=== PATIENT | female | born 1945 | race Caucasian/White ===

== ENCOUNTER 2022-07-20 10:12 | Inpatient (IN) ==
[2022-07-20] MEDS ORDERED: Propofol 10 mg/ml 100 ML BTL 1,000 MG/100 ML BTL ONE (11:17)
[2022-07-20] MEDS ORDERED: Lactated Ringers 1000 ml BAG 1,000 ML IV ONE (11:18)
[2022-07-20] MEDS: Propofol 10 mg/ml 100 ML BTL 1,000 MG/100 ML BTL IV SCH ×2 (11:49→15:29)
[2022-07-20] MEDS ORDERED: Piperacillin/Tazobac ADVAN 3.375 GM in NS 0.9% 100 ml BAG 100 ML IV ONE (11:53)
[2022-07-20] MEDS ORDERED: Zosyn per Pharmacy NOTE FOLLOW UP SCH (12:00)
[2022-07-20] MEDS ORDERED: Dextrose 50% Syringe 50 ml 25 GM/50 ML SYRINGE IV PUSH PRN (12:03)
[2022-07-20] MEDS ORDERED: HYDROmorphone 1 MG/1 ML SYRINGE IV SLOW PU ONE (12:44)
[2022-07-20 12:45] LABS: Hematocrit 40.1 % (35-45); Hemoglobin 13.2 g/dL (11.5-14.3); Mean Corpuscular Hemoglobin 30.1 pg (27-33); Mean Corpuscular Volume 91.2 fL (80-97); Mean Platelet Volume 7.5 fL (7.5-11.2); Platelet Count 154 10^3/uL (150-450); Red Cell Distribution Width 15.5 % (12-17); White Blood Count 11.3 10^3/uL (3.8-11.8)
[2022-07-20 13:08] LABS: Albumin 2.9 g/dL (3.2-5.2); Albumin/Globulin Ratio 1.5 (1-3); Creatinine, Serum 2.07 mg/dL (0.51-0.95); Globulin 1.9 g/dL (2-4); HDL Cholesterol 14.3 mg/dL; Potassium 4.5 mmol/L (3.5-5.0); Total Bilirubin 1.7 mg/dL (0.2-1.0); Total Protein 4.8 g/dL (6.4-8.9); eGFR CKD-EPI 24.4 (>60)
[2022-07-20 13:20] LABS: Calcium 5.4 mg/dL (8.6-10.3)
[2022-07-20] MEDS ORDERED: Calcium Gluconate 2 GM in NS 0.9% 100 ml BAG 100 ML IV ONE (13:26)
[2022-07-20] MEDS ORDERED: CALCIUM GLUCONATE IVPB ONE ×2 (13:27→14:38)
[2022-07-20] MEDS ORDERED: NS 0.9% IVPB ONE ×2 (13:27→14:38)
[2022-07-20] MEDS: Chlorhexidine MOUTHWASH 0.12% 15 ML UDC TOPICAL SCH ×3 (13:34→19:44)
[2022-07-20] MEDS: Enoxaparin 40 MG/0.4 ML SYR SUBCUT SCH (13:34)
[2022-07-20 15:11] LABS: Magnesium 1.6 mg/dL (1.9-2.7)
[2022-07-20] MEDS ORDERED: Magnesium Sulfate IV 3 GM in NS 0.9% 100 ml BAG 100 ML IVPB ONE (16:54)
[2022-07-20 21:10] LABS: Phosphorus 3.8 mg/dL (2.5-5.0)
[2022-07-21] MEDS: Chlorhexidine MOUTHWASH 0.12% 15 ML UDC TOPICAL SCH ×6 (00:08→20:35)
[2022-07-21] MEDS: Propofol 10 mg/ml 100 ML BTL 1,000 MG/100 ML BTL IV SCH ×4 (00:42→20:24)
[2022-07-21 04:13] LABS: Hematocrit 35.9 % (35-45); Hemoglobin 12.2 g/dL (11.5-14.3); Mean Corpuscular Hemoglobin 30.4 pg (27-33); Mean Corpuscular Hgb Conc 34.1 g/dL (31-36); Mean Corpuscular Volume 89.1 fL (80-97); Mean Platelet Volume 7.1 fL (7.5-11.2); Platelet Count 156 10^3/uL (150-450); Red Blood Count 4.03 10^6/uL (3.63-4.92); Red Cell Distribution Width 14.9 % (12-17); White Blood Count 9.8 10^3/uL (3.8-11.8)
[2022-07-21 04:38] LABS: ABS Lymphocytes 0.5 10^3/uL (1.0-4.8); ABS Monocytes 0.5 10^3/uL (0.0-0.9); ABS Neutrophils 8.7 10^3/uL (1.5-7.6); ABS Nucleated RBC 0.01 10^3/ul; Eosinophil % 0.1 %; Lymphocyte % 5.6 %; Nucleated Red Blood Cells % 0.1 /100 WBC (0.0-0.4)
[2022-07-21 04:51] LABS: Albumin 2.5 g/dL (3.2-5.2); Albumin/Globulin Ratio 1.3 (1-3); Calcium 7.3 mg/dL (8.6-10.3); Creatinine, Serum 1.65 mg/dL (0.51-0.95); Globulin 1.9 g/dL (2-4); Magnesium 2.4 mg/dL (1.9-2.7); Phosphorus 2.8 mg/dL (2.5-5.0); Potassium 3.9 mmol/L (3.5-5.0); Total Protein 4.4 g/dL (6.4-8.9)
[2022-07-21] MEDS ORDERED: Metoprolol Tartrate 5 mg VIAL 5 ml VIAL (1 mg/ml) IV PRN (06:27)
[2022-07-21] MEDS ORDERED: Metoprolol Tartrate 5 mg VIAL 5 ml VIAL (1 mg/ml) ONE (06:29)
[2022-07-21] MEDS: Enoxaparin 40 MG/0.4 ML SYR SUBCUT SCH (09:01)
[2022-07-21] MEDS: Lactated Ringers 1000 ml BAG 1,000 ML IV SCH ×2 (09:02→19:00)
[2022-07-21] MEDS: Pantoprazole VIAL 40 MG VIAL IV SCH (09:02)
[2022-07-21] MEDS ORDERED: HYDROmorphone 1 MG/1 ML SYRINGE IV SLOW PU ONE (14:20)
[2022-07-21] MEDS: Acetaminophen IV 1 GM/100ML 1,000 MG/100 ML BAG IV PRN (18:34)
[2022-07-21 18:46] LABS: ALT 34 U/L (7-52); Albumin 2.3 g/dL (3.2-5.2); Albumin/Globulin Ratio 1.2 (1-3); Alkaline Phosphatase 119 U/L (35-149); Blood Urea Nitrogen 47 mg/dL (6-24); CO2 Carbon Dioxide 19 mmol/L (22-32); Calcium 7.2 mg/dL (8.6-10.3); Chloride 114 mmol/L (101-111); Creatinine, Serum 1.51 mg/dL (0.51-0.95); Globulin 1.9 g/dL (2-4); Glucose 195 mg/dL (70-100); Sodium 141 mmol/L (135-145); Total Protein 4.2 g/dL (6.4-8.9); eGFR CKD-EPI 35.6 (>60)
[2022-07-21] MEDS: Norepinephrine 16MCG/ML BAGD5W 4,000 MCG/250 ML BAG IV SCH (18:56)
[2022-07-21 18:57] LABS: Creatine Kinase 368 U/L (10-223)
[2022-07-21] MEDS: Meropenem 2 GM in NS 0.9% 100 ml BAG 100 ML IVPB SCH (19:32)
[2022-07-21 19:34] LABS: Burr Cells 1+; Tear Drop Cells 1+
[2022-07-21 19:35] LABS: ABS Lymphocytes 0.3 10^3/uL (1.0-4.8); ABS Neutrophils 2.7 10^3/uL (1.5-7.6); ABS Nucleated RBC 0.05 10^3/ul; Eosinophil % 0.8 %; Hematocrit 34.5 % (35-45); Lymphocyte % 9.4 %; Mean Corpuscular Hemoglobin 31.8 pg (27-33); Mean Corpuscular Hgb Conc 34.8 g/dL (31-36); Mean Corpuscular Volume 91.3 fL (80-97); Mean Platelet Volume 7.8 fL (7.5-11.2); Nucleated Red Blood Cells % 1.5 /100 WBC (0.0-0.4); Platelet Count 147 10^3/uL (150-450); Red Blood Count 3.77 10^6/uL (3.63-4.92); Red Cell Distribution Width 15.6 % (12-17)
[2022-07-21 19:40] LABS: Anion Gap 8 mmol/L (2-16)
[2022-07-21] MEDS ORDERED: Alteplase (CATHFLO) 2 MG VIAL IV ONE (20:01)
[2022-07-22] MEDS: Chlorhexidine MOUTHWASH 0.12% 15 ML UDC TOPICAL SCH ×7 (00:25→23:54)
[2022-07-22 01:27] LABS: Potassium, Whole Blood 3.2 mmol/L (3.4-4.5)
[2022-07-22 05:03] LABS: Hematocrit 33.9 % (35-45); Hemoglobin 11.8 g/dL (11.5-14.3); Mean Corpuscular Hemoglobin 31.4 pg (27-33); Mean Corpuscular Hgb Conc 34.8 g/dL (31-36); Mean Corpuscular Volume 90.3 fL (80-97); Mean Platelet Volume 7.4 fL (7.5-11.2); Platelet Count 125 10^3/uL (150-450); Red Blood Count 3.75 10^6/uL (3.63-4.92); White Blood Count 7.9 10^3/uL (3.8-11.8)
[2022-07-22] MEDS: Propofol 10 mg/ml 100 ML BTL 1,000 MG/100 ML BTL IV SCH ×5 (05:31→21:47)
[2022-07-22 05:38] LABS: ABS Lymphocytes 0.7 10^3/uL (1.0-4.8); ABS Monocytes 0.2 10^3/uL (0.0-0.9); Eosinophil % 0.4 %; Lymphocyte % 9.4 %; Nucleated Red Blood Cells % 0.1 /100 WBC (0.0-0.4)
[2022-07-22 05:40] LABS: Albumin 2.2 g/dL (3.2-5.2); Albumin/Globulin Ratio 1.2 (1-3); Calcium 7.1 mg/dL (8.6-10.3); Creatinine, Serum 1.54 mg/dL (0.51-0.95); Globulin 1.9 g/dL (2-4); Magnesium 2.3 mg/dL (1.9-2.7); Potassium 3.5 mmol/L (3.5-5.0); Total Protein 4.1 g/dL (6.4-8.9); eGFR CKD-EPI 34.8 (>60)
[2022-07-22] MEDS: Pantoprazole VIAL 40 MG VIAL IV SCH (07:24)
[2022-07-22] MEDS: Meropenem 2 GM in NS 0.9% 100 ml BAG 100 ML IVPB SCH ×2 (07:25→20:59)
[2022-07-22] MEDS: Enoxaparin 40 MG/0.4 ML SYR SUBCUT SCH (07:25)
[2022-07-22] MEDS ORDERED: Potassium Phosphate IV 10 MMOL in NS 0.9% 250 ml 250 ML IVPB ONE (07:45)
[2022-07-22] MEDS: Lactated Ringers 1000 ml BAG 1,000 ML IV SCH ×2 (08:48→18:21)
[2022-07-22] MEDS ORDERED: Thiamine 100 MG/ML 2 ml VIAL 500 MG in NS 0.9% 250 ml 250 ML IV ONE (16:07)
[2022-07-22] MEDS: Acetaminophen IV 1 GM/100ML 1,000 MG/100 ML BAG IV PRN (16:23)
[2022-07-23] MEDS: HYDROmorphone 0.5 MG/0.5 ML SYRINGE IV SLOW PU PRN ×3 (03:03→15:11)
[2022-07-23] MEDS: Propofol 10 mg/ml 100 ML BTL 1,000 MG/100 ML BTL IV SCH ×5 (03:25→21:24)
[2022-07-23] MEDS: Lactated Ringers 1000 ml BAG 1,000 ML IV SCH (03:55)
[2022-07-23] MEDS: Chlorhexidine MOUTHWASH 0.12% 15 ML UDC TOPICAL SCH ×5 (03:56→20:03)
[2022-07-23 04:34] LABS: Hematocrit 34.8 % (35-45); Hemoglobin 11.8 g/dL (11.5-14.3); Mean Corpuscular Hemoglobin 30.7 pg (27-33); Mean Corpuscular Hgb Conc 34.1 g/dL (31-36); Mean Corpuscular Volume 90.1 fL (80-97); Mean Platelet Volume 7.6 fL (7.5-11.2); Platelet Count 117 10^3/uL (150-450); Red Blood Count 3.86 10^6/uL (3.63-4.92); Red Cell Distribution Width 15.3 % (12-17); White Blood Count 10.1 10^3/uL (3.8-11.8)
[2022-07-23 04:50] LABS: Albumin 2.2 g/dL (3.2-5.2); Albumin/Globulin Ratio 1.2 (1-3); Calcium 7.2 mg/dL (8.6-10.3); Creatinine, Serum 1.18 mg/dL (0.51-0.95); Globulin 1.9 g/dL (2-4); Magnesium 2.1 mg/dL (1.9-2.7); Phosphorus 2.6 mg/dL (2.5-5.0); Potassium 3.5 mmol/L (3.5-5.0); Total Bilirubin 0.9 mg/dL (0.2-1.0); Total Protein 4.1 g/dL (6.4-8.9); eGFR CKD-EPI 47.9 (>60)
[2022-07-23 05:14] LABS: INR 1.37 (0.88-1.18)
[2022-07-23 05:24] LABS: ABS Eosinophils 0.1 10^3/uL (0.0-0.5); ABS Lymphocytes 0.7 10^3/uL (1.0-4.8); ABS Monocytes 0.4 10^3/uL (0.0-0.9); ABS Neutrophils 8.8 10^3/uL (1.5-7.6); ABS Nucleated RBC 0.02 10^3/ul; Eosinophil % 1.4 %; Nucleated Red Blood Cells % 0.2 /100 WBC (0.0-0.4)
[2022-07-23 05:25] LABS: RBC Morphology Normal (Normal)
[2022-07-23] MEDS: Enoxaparin 40 MG/0.4 ML SYR SUBCUT SCH (08:33)
[2022-07-23] MEDS: Meropenem 2 GM in NS 0.9% 100 ml BAG 100 ML IVPB SCH ×2 (08:33→21:23)
[2022-07-23] MEDS: Pantoprazole VIAL 40 MG VIAL IV SCH (08:33)
[2022-07-23] MEDS ORDERED: Iodixanol (CONTRAST) 320 MG/ML 100 ML SDV IV ONE (13:38)
[2022-07-24] MEDS: Chlorhexidine MOUTHWASH 0.12% 15 ML UDC TOPICAL SCH ×7 (00:35→23:54)
[2022-07-24] MEDS: Propofol 10 mg/ml 100 ML BTL 1,000 MG/100 ML BTL IV SCH (03:05)
[2022-07-24] MEDS: Acetaminophen IV 1 GM/100ML 1,000 MG/100 ML BAG IV PRN (04:36)
[2022-07-24 05:44] LABS: Hemoglobin 10.3 g/dL (11.5-14.3); Mean Corpuscular Hemoglobin 30.2 pg (27-33)
[2022-07-24 05:45] LABS: Mean Corpuscular Hgb Conc 33.5 g/dL (31-36)
[2022-07-24 05:47] LABS: Hematocrit 30.8 % (35-45); Mean Corpuscular Volume 90.6 fL (80-97); Mean Platelet Volume 9.6 fL (7.5-11.2); Platelet Count 134 10^3/uL (150-450); Red Cell Distribution Width 15.4 % (12-17); White Blood Count 11.1 10^3/uL (3.8-11.8)
[2022-07-24 05:55] LABS: ABS Basophils 0.1 10^3/uL (0.0-0.1); ABS Eosinophils 0.2 10^3/uL (0.0-0.5); ABS Lymphocytes 0.7 10^3/uL (1.0-4.8); ABS Monocytes 0.4 10^3/uL (0.0-0.9); ABS Neutrophils 9.7 10^3/uL (1.5-7.6); ABS Nucleated RBC 0.01 10^3/ul; Anisocytosis 1+; Lymphocyte % 6.4 %; Nucleated Red Blood Cells % 0.1 /100 WBC (0.0-0.4); Toxic Granulation 1+
[2022-07-24 06:00] LABS: Albumin 2.1 g/dL (3.2-5.2); Albumin/Globulin Ratio 1.1 (1-3); Calcium 7.3 mg/dL (8.6-10.3); Creatinine, Serum 1.02 mg/dL (0.51-0.95); Potassium 3.3 mmol/L (3.5-5.0); Total Bilirubin 0.7 mg/dL (0.2-1.0); Total Protein 4.1 g/dL (6.4-8.9)
[2022-07-24] MEDS: KCL 20 MEQ/100 ML IVPREMIX 20 MEQ/100 ML BAG IV SCH ×3 (06:13→11:52)
[2022-07-24] MEDS: Enoxaparin 40 MG/0.4 ML SYR SUBCUT SCH (07:23)
[2022-07-24] MEDS: Pantoprazole VIAL 40 MG VIAL IV SCH (07:23)
[2022-07-24] MEDS: HYDROmorphone 1 MG/1 ML SYRINGE IV SLOW PU PRN ×4 (07:31→21:54)
[2022-07-24] MEDS: Meropenem 2 GM in NS 0.9% 100 ml BAG 100 ML IVPB SCH ×2 (09:24→21:28)
[2022-07-24 11:29] LABS: Urine Appearance Clear; Urine Bilirubin Negative (Negative); Urine Blood 1+ (Negative); Urine Color Yellow; Urine Glucose 3+(>=500 mg/dL) (Negative); Urine Ketones Trace (Negative); Urine Nitrite Negative (Negative); Urine Protein 1+(30 mg/dL) (Negative); Urine Specific Gravity 1.024 (1.002-1.030); Urine Urobilinogen Negative (Negative)
[2022-07-24 11:39] LABS: Urine Bacteria Absent (Absent); Urine Red Blood Cell 1+(3-5/hpf) (Absent); Urine White Blood Cell Trace(0-5/hpf) (Absent)
[2022-07-24 15:52] LABS: TSH Ultra Thyroid Stim Horm 1.43 mcIU/mL (0.34-5.60)
[2022-07-24 16:03] LABS: Vitamin B12 > 1450 pg/mL (180-914)
[2022-07-24] MEDS ORDERED: Dextran 70/Hypromellose Tears Eye Drops 15 ml BTL (for Artificials Tears) BOTH EYES PRN (21:52)
[2022-07-24] MEDS ORDERED: Propofol 10 mg/ml 100 ML BTL 1,000 MG/100 ML BTL IV SCH (22:00)
[2022-07-24] MEDS: Alteplase (CATHFLO) 2 MG VIAL IV ONE (23:22)
[2022-07-25] MEDS: HYDROmorphone 1 MG/1 ML SYRINGE IV SLOW PU PRN ×3 (02:39→14:06)
[2022-07-25] MEDS: Chlorhexidine MOUTHWASH 0.12% 15 ML UDC TOPICAL SCH ×5 (03:51→19:56)
[2022-07-25 05:18] LABS: Hematocrit 37.7 % (35-45); Hemoglobin 12.7 g/dL (11.5-14.3); Mean Corpuscular Hemoglobin 30.2 pg (27-33); Mean Corpuscular Hgb Conc 33.7 g/dL (31-36); Mean Corpuscular Volume 89.7 fL (80-97); Mean Platelet Volume 8.1 fL (7.5-11.2); Platelet Count 155 10^3/uL (150-450); Red Cell Distribution Width 14.8 % (12-17); White Blood Count 18.1 10^3/uL (3.8-11.8)
[2022-07-25 05:25] LABS: CO2 Carbon Dioxide 24 mmol/L (22-32); Calcium 7.6 mg/dL (8.6-10.3); Chloride 116 mmol/L (101-111); Sodium 147 mmol/L (135-145)
[2022-07-25 05:31] LABS: ALT 23 U/L (7-52); Albumin/Globulin Ratio 0.7 (1-3); Alkaline Phosphatase 160 U/L (35-149); Blood Urea Nitrogen 38 mg/dL (6-24); Creatinine, Serum 0.94 mg/dL (0.51-0.95); Globulin 2.7 g/dL (2-4); Glucose 253 mg/dL (70-100); Total Protein 4.7 g/dL (6.4-8.9); eGFR CKD-EPI 62.9 (>60)
[2022-07-25 05:34] LABS: Anion Gap 7 mmol/L (2-16)
[2022-07-25 06:09] LABS: ABS Eosinophils 0.1 10^3/uL (0.0-0.5); ABS Lymphocytes 0.9 10^3/uL (1.0-4.8); ABS Monocytes 0.8 10^3/uL (0.0-0.9); ABS Neutrophils 16.3 10^3/uL (1.5-7.6); ABS Nucleated RBC 0.01 10^3/ul; Eosinophil % 0.5 %; Lymphocyte % 4.9 %
[2022-07-25 08:04] LABS: Magnesium 2.2 mg/dL (1.9-2.7)
[2022-07-25 08:10] LABS: Phosphorus 3.2 mg/dL (2.5-5.0)
[2022-07-25] MEDS: Meropenem 2 GM in NS 0.9% 100 ml BAG 100 ML IVPB SCH (08:10)
[2022-07-25] MEDS: Pantoprazole VIAL 40 MG VIAL IV SCH (08:20)
[2022-07-25] MEDS: Enoxaparin 40 MG/0.4 ML SYR SUBCUT SCH (08:22)
[2022-07-25] MEDS ORDERED: Dextrose 50% Syringe 50 ml 25 GM/50 ML SYRINGE IV PUSH PRN (09:07)
[2022-07-25 09:38] LABS: RBC Morphology Normal (Normal)
[2022-07-25] MEDS ORDERED: Labetalol IV 5 MG/ML 20 ml VIAL IV PUSH PRN (13:02)
[2022-07-25] MEDS: Acetaminophen IV 1 GM/100ML 1,000 MG/100 ML BAG IV PRN ×2 (14:06→23:30)
[2022-07-25] MEDS: Propofol 10 mg/ml 100 ML BTL 1,000 MG/100 ML BTL IV SCH (15:21)
[2022-07-26] MEDS: Chlorhexidine MOUTHWASH 0.12% 15 ML UDC TOPICAL SCH ×6 (00:33→22:30)
[2022-07-26 06:23] LABS: Hemoglobin 12.9 g/dL (11.5-14.3); Mean Corpuscular Hemoglobin 30.4 pg (27-33); Mean Corpuscular Hgb Conc 33.8 g/dL (31-36); Mean Corpuscular Volume 89.8 fL (80-97); Mean Platelet Volume 8.5 fL (7.5-11.2); Platelet Count 173 10^3/uL (150-450); Red Blood Count 4.23 10^6/uL (3.63-4.92); Red Cell Distribution Width 14.3 % (12-17); White Blood Count 19.3 10^3/uL (3.8-11.8)
[2022-07-26 06:53] LABS: Albumin/Globulin Ratio 0.8 (1-3); Calcium 7.8 mg/dL (8.6-10.3); Creatinine, Serum 0.83 mg/dL (0.51-0.95); Globulin 2.6 g/dL (2-4); Magnesium 2.1 mg/dL (1.9-2.7); Potassium 3.7 mmol/L (3.5-5.0); Total Bilirubin 0.6 mg/dL (0.2-1.0); Total Protein 4.6 g/dL (6.4-8.9)
[2022-07-26 08:18] LABS: ABS Basophils 0.1 10^3/uL (0.0-0.1); ABS Eosinophils 0.2 10^3/uL (0.0-0.5); ABS Monocytes 0.5 10^3/uL (0.0-0.9); ABS Neutrophils 17.5 10^3/uL (1.5-7.6); ABS Nucleated RBC 0.01 10^3/ul
[2022-07-26] MEDS: Enoxaparin 40 MG/0.4 ML SYR SUBCUT SCH (09:50)
[2022-07-26] MEDS: Pantoprazole VIAL 40 MG VIAL IV SCH (09:50)
[2022-07-26] MEDS: HYDROmorphone 1 MG/1 ML SYRINGE IV SLOW PU PRN (09:51)
[2022-07-26] MEDS: cefTRIAXone 2 gm/50 mL D5W 2 GM/50 ML BAG IV SCH (10:58)
[2022-07-26] MEDS: metroNIDAZOLE IV 500 MG/100ML 500 MG/100 ML BAG IVPB SCH ×2 (10:58→16:45)
[2022-07-26] MEDS ORDERED: Vancomycin 1,500 MG in NS 0.9% 250 ml 250 ML IVPB ONE (11:00)
[2022-07-26 11:20] LABS: Calcium 7.8 mg/dL (8.6-10.3); Creatinine, Serum 0.81 mg/dL (0.51-0.95); Potassium 3.6 mmol/L (3.5-5.0); eGFR CKD-EPI 75.2 (>60)
[2022-07-26 11:30] LABS: C Reactive Protein 260.29 mg/L (<8.01)
[2022-07-26 13:22] LABS: Urine Osmo 633 mOsm/kg (150-1150)
[2022-07-26 15:48] LABS: DRVVT Screen Ratio 1.35 ratio (<1.20); LAC APTT 28 sec (25 - 37); LAC INR 1.3 (0.9-1.1); LAC PT Mix 1:1 12.3 sec (9.4 - 12.5); Prothrombin Time(LAC) 14.5 sec (9.4 - 12.5)
[2022-07-26] MEDS: Acetaminophen IV 1 GM/100ML 1,000 MG/100 ML BAG IV PRN (16:45)
[2022-07-26 18:19] LABS: Calcium 7.2 mg/dL (8.6-10.3); Creatinine, Serum 0.85 mg/dL (0.51-0.95); Potassium 3.4 mmol/L (3.5-5.0)
[2022-07-26] MEDS ORDERED: Insulin GLARGINE 100 un/ml 10 ml VIAL SUBCUT SCH (21:00)
[2022-07-26] MEDS: Potassium Chloride LIQUID 20 MEQ/15 ML LIQUID PO SCH (23:14)
[2022-07-27] MEDS: metroNIDAZOLE IV 500 MG/100ML 500 MG/100 ML BAG IVPB SCH ×3 (01:33→17:35)
[2022-07-27] MEDS: Chlorhexidine MOUTHWASH 0.12% 15 ML UDC TOPICAL SCH ×6 (01:49→21:12)
[2022-07-27 02:11] LABS: CO2 Carbon Dioxide 24 mmol/L (22-32); Calcium 7.6 mg/dL (8.6-10.3); Chloride 114 mmol/L (101-111); Sodium 146 mmol/L (135-145)
[2022-07-27 02:16] LABS: Anion Gap 8 mmol/L (2-16)
[2022-07-27 02:17] LABS: Blood Urea Nitrogen 37 mg/dL (6-24); Creatinine, Serum 0.85 mg/dL (0.51-0.95); Glucose 243 mg/dL (70-100)
[2022-07-27] MEDS: Potassium Chloride LIQUID 20 MEQ/15 ML LIQUID PO SCH (03:56)
[2022-07-27 05:19] LABS: Calcium 7.5 mg/dL (8.6-10.3); Creatinine, Serum 0.81 mg/dL (0.51-0.95); Potassium 4.1 mmol/L (3.5-5.0); eGFR CKD-EPI 75.2 (>60)
[2022-07-27] MEDS: Vancomycin 1000 MG in NS 0.9% 250 ML IVPB SCH ×2 (05:30→17:35)
[2022-07-27] MEDS: Acetaminophen IV 1 GM/100ML 1,000 MG/100 ML BAG IV PRN (06:30)
[2022-07-27] MEDS: Propofol 10 mg/ml 100 ML BTL 1,000 MG/100 ML BTL IV SCH ×2 (08:31→08:32)
[2022-07-27] MEDS: Norepinephrine 16MCG/ML BAGD5W 4,000 MCG/250 ML BAG IV SCH (08:32)
[2022-07-27 08:54] LABS: ABS Basophils 0.1 10^3/uL (0.0-0.1); ABS Eosinophils 0.1 10^3/uL (0.0-0.5); ABS Lymphocytes 1.5 10^3/uL (1.0-4.8); ABS Monocytes 0.6 10^3/uL (0.0-0.9); ABS Neutrophils 18.4 10^3/uL (1.5-7.6); ABS Nucleated RBC 0.02 10^3/ul; Eosinophil % 0.6 %; Hematocrit 36.3 % (35-45); Hemoglobin 11.9 g/dL (11.5-14.3); Lymphocyte % 7.3 %; Mean Corpuscular Hemoglobin 29.3 pg (27-33); Mean Corpuscular Hgb Conc 32.9 g/dL (31-36); Mean Corpuscular Volume 89.1 fL (80-97); Mean Platelet Volume 8.8 fL (7.5-11.2); Nucleated Red Blood Cells % 0.1 /100 WBC (0.0-0.4); Platelet Count 225 10^3/uL (150-450); Red Blood Count 4.07 10^6/uL (3.63-4.92); Red Cell Distribution Width 14.4 % (12-17); White Blood Count 20.7 10^3/uL (3.8-11.8)
[2022-07-27 09:04] LABS: INR 1.42 (0.88-1.18)
[2022-07-27] MEDS ORDERED: Phytonadione Oral Solution 5 MG/25 ML UDC PO ONE (09:15)
[2022-07-27] MEDS: Pantoprazole VIAL 40 MG VIAL IV SCH (10:13)
[2022-07-27] MEDS: cefTRIAXone 2 gm/50 mL D5W 2 GM/50 ML BAG IV SCH (10:14)
[2022-07-27] MEDS ORDERED: Lactulose 30 ml UDC ONE (10:16)
[2022-07-27] MEDS ORDERED: Vancomycin per Pharmacy 1 EA NOTE FOLLOW UP PRN (11:41)
[2022-07-27] MEDS: Lactulose 30 ml UDC PO SCH ×3 (11:53→21:14)
[2022-07-27 12:03] LABS: Coag Factor VII Assay,P 55 % (65 - 180)
[2022-07-27 16:32] LABS: Body Fluid Source Cerebral Spinal
[2022-07-27 16:34] LABS: Body Fluid Appearance Clear; Body Fluid Color Colorless
[2022-07-27 16:35] LABS: CSF Tube # 4
[2022-07-27 16:46] LABS: CSF Glucose 147 mg/dL (40-70)
[2022-07-27 16:53] LABS: Body Fluid WBC 0 /mcL
[2022-07-27 16:54] LABS: Fibrinogen, Clauss, P >800 mg/dL (200 - 500)
[2022-07-27] MEDS ORDERED: Furosemide 20 mg/2 ml IV VIAL IV SLOW PU ONE (17:43)
[2022-07-27 20:36] LABS: Albumin 1.9 g/dL (3.2-5.2); Albumin/Globulin Ratio 0.6 (1-3); Calcium 7.5 mg/dL (8.6-10.3); Creatinine, Serum 0.79 mg/dL (0.51-0.95); Total Bilirubin 0.5 mg/dL (0.2-1.0); Total Protein 4.9 g/dL (6.4-8.9); eGFR CKD-EPI 77.5 (>60)
[2022-07-27 20:50] LABS: Potassium 3.9 mmol/L (3.5-5.0)
[2022-07-27] MEDS ORDERED: Insulin GLARGINE 100 un/ml 10 ml VIAL SUBCUT SCH (21:00)
[2022-07-27] MEDS ORDERED: Magnesium Sulfate 2 gm BAG 2 GM/50 ML BAG IVPB ONE (21:02)
[2022-07-27] MEDS ORDERED: Potassium Chloride LIQUID 20 MEQ/15 ML LIQUID PO ONE (21:02)
[2022-07-28] MEDS: metroNIDAZOLE IV 500 MG/100ML 500 MG/100 ML BAG IVPB SCH ×3 (00:45→16:43)
[2022-07-28] MEDS: Chlorhexidine MOUTHWASH 0.12% 15 ML UDC TOPICAL SCH ×3 (00:47→07:48)
[2022-07-28 04:38] LABS: ABS Basophils 0.2 10^3/uL (0.0-0.1); ABS Eosinophils 0.1 10^3/uL (0.0-0.5); ABS Lymphocytes 1.1 10^3/uL (1.0-4.8); ABS Monocytes 0.5 10^3/uL (0.0-0.9); ABS Neutrophils 15.1 10^3/uL (1.5-7.6); ABS Nucleated RBC 0.02 10^3/ul; Eosinophil % 0.5 %; Hematocrit 32.1 % (35-45); Hemoglobin 10.8 g/dL (11.5-14.3); Lymphocyte % 6.5 %; Mean Corpuscular Hgb Conc 33.6 g/dL (31-36); Mean Corpuscular Volume 89.2 fL (80-97); Mean Platelet Volume 8.8 fL (7.5-11.2); Nucleated Red Blood Cells % 0.1 /100 WBC (0.0-0.4); Platelet Count 221 10^3/uL (150-450); Red Cell Distribution Width 14.5 % (12-17); White Blood Count 17.1 10^3/uL (3.8-11.8)
[2022-07-28 05:19] LABS: Albumin 1.8 g/dL (3.2-5.2); Albumin/Globulin Ratio 0.7 (1-3); Calcium 7.4 mg/dL (8.6-10.3); Creatinine, Serum 0.79 mg/dL (0.51-0.95); Globulin 2.7 g/dL (2-4); Magnesium 2.1 mg/dL (1.9-2.7); Phosphorus 3.5 mg/dL (2.5-5.0); Potassium 3.7 mmol/L (3.5-5.0); Total Bilirubin 0.4 mg/dL (0.2-1.0); Total Protein 4.5 g/dL (6.4-8.9); Vancomycin Trough 11.6 mcg/mL; eGFR CKD-EPI 77.5 (>60)
[2022-07-28] MEDS ORDERED: Vancomycin Trough Check NOTE FOLLOW UP ONE (05:30)
[2022-07-28] MEDS ORDERED: Potassium Chloride LIQUID 20 MEQ/15 ML LIQUID PO ONE (05:41)
[2022-07-28] MEDS: Vancomycin 1000 MG in NS 0.9% 250 ML IVPB SCH (05:42)
[2022-07-28] MEDS: cefTRIAXone 2 gm/50 mL D5W 2 GM/50 ML BAG IV SCH (07:49)
[2022-07-28] MEDS: Pantoprazole VIAL 40 MG VIAL IV SCH (07:52)
[2022-07-28] MEDS: Lactulose 30 ml UDC PO SCH (07:59)
[2022-07-28] MEDS: Enoxaparin 40 MG/0.4 ML SYR SUBCUT SCH (12:19)
[2022-07-28 13:31] LABS: Albumin 1.9 g/dL (3.2-5.2); Albumin/Globulin Ratio 0.6 (1-3); Calcium 7.3 mg/dL (8.6-10.3); Creatinine, Serum 0.8 mg/dL (0.51-0.95); Potassium 4.2 mmol/L (3.5-5.0); Total Bilirubin 0.5 mg/dL (0.2-1.0); Total Protein 4.9 g/dL (6.4-8.9); eGFR CKD-EPI 76.3 (>60)
[2022-07-28] MEDS: Acetaminophen IV 1 GM/100ML 1,000 MG/100 ML BAG IV PRN (14:01)
[2022-07-28] MEDS: Insulin GLARGINE 100 un/ml 10 ml VIAL SUBCUT SCH (20:45)
[2022-07-28] MEDS ORDERED: Insulin GLARGINE 100 un/ml 10 ml VIAL SUBCUT SCH (21:00)
[2022-07-29] MEDS: metroNIDAZOLE IV 500 MG/100ML 500 MG/100 ML BAG IVPB SCH ×3 (00:22→16:03)
[2022-07-29 05:16] LABS: ABS Basophils 0.1 10^3/uL (0.0-0.1); ABS Eosinophils 0.1 10^3/uL (0.0-0.5); ABS Lymphocytes 1.2 10^3/uL (1.0-4.8); ABS Monocytes 0.7 10^3/uL (0.0-0.9); ABS Neutrophils 15.2 10^3/uL (1.5-7.6); ABS Nucleated RBC 0.02 10^3/ul; Eosinophil % 0.4 %; Hematocrit 32.7 % (35-45); Hemoglobin 11.1 g/dL (11.5-14.3); Lymphocyte % 6.9 %; Mean Corpuscular Hemoglobin 30.4 pg (27-33); Mean Corpuscular Hgb Conc 33.9 g/dL (31-36); Mean Corpuscular Volume 89.6 fL (80-97); Mean Platelet Volume 8.8 fL (7.5-11.2); Nucleated Red Blood Cells % 0.1 /100 WBC (0.0-0.4); Platelet Count 273 10^3/uL (150-450); Red Blood Count 3.65 10^6/uL (3.63-4.92); Red Cell Distribution Width 14.4 % (12-17); White Blood Count 17.3 10^3/uL (3.8-11.8)
[2022-07-29 05:58] LABS: Albumin 1.8 g/dL (3.2-5.2); Albumin/Globulin Ratio 0.6 (1-3); Calcium 7.3 mg/dL (8.6-10.3); Creatinine, Serum 0.76 mg/dL (0.51-0.95); Globulin 2.8 g/dL (2-4); Magnesium 1.9 mg/dL (1.9-2.7); Total Bilirubin 0.5 mg/dL (0.2-1.0); Total Protein 4.6 g/dL (6.4-8.9); eGFR CKD-EPI 81.2 (>60)
[2022-07-29] MEDS ORDERED: Magnesium Sulfate 2 gm BAG 2 GM/50 ML BAG IVPB ONE (06:13)
[2022-07-29] MEDS ORDERED: Lactated Ringers 1000 ml BAG 1,000 ML IV ONE (08:16)
[2022-07-29] MEDS: Pantoprazole VIAL 40 MG VIAL IV SCH (09:04)
[2022-07-29] MEDS: cefTRIAXone 2 gm/50 mL D5W 2 GM/50 ML BAG IV SCH (09:19)
[2022-07-29] MEDS: Enoxaparin 40 MG/0.4 ML SYR SUBCUT SCH (09:23)
[2022-07-29 16:15] LABS: HSV 1 PCR, CSF Negative (Negative); HSV 2 PCR, CSF Negative (Negative)
[2022-07-29] MEDS: Insulin GLARGINE 100 un/ml 10 ml VIAL SUBCUT SCH (21:25)
[2022-07-30] MEDS: metroNIDAZOLE IV 500 MG/100ML 500 MG/100 ML BAG IVPB SCH ×3 (00:23→17:24)
[2022-07-30 05:43] LABS: Hematocrit 31.4 % (35-45); Hemoglobin 10.6 g/dL (11.5-14.3); Mean Corpuscular Hemoglobin 30.9 pg (27-33); Mean Corpuscular Hgb Conc 33.6 g/dL (31-36); Mean Platelet Volume 8.7 fL (7.5-11.2); Platelet Count 342 10^3/uL (150-450); Red Blood Count 3.42 10^6/uL (3.63-4.92); Red Cell Distribution Width 14.4 % (12-17); White Blood Count 16.9 10^3/uL (3.8-11.8)
[2022-07-30 06:00] LABS: Albumin 1.7 g/dL (3.2-5.2); Albumin/Globulin Ratio 0.6 (1-3); Calcium 7.2 mg/dL (8.6-10.3); Creatinine, Serum 0.75 mg/dL (0.51-0.95); Globulin 2.8 g/dL (2-4); Magnesium 2.1 mg/dL (1.9-2.7); Total Bilirubin 0.4 mg/dL (0.2-1.0); Total Protein 4.5 g/dL (6.4-8.9); eGFR CKD-EPI 82.5 (>60)
[2022-07-30 06:04] LABS: ABS Basophils 0.1 10^3/uL (0.0-0.1); ABS Eosinophils 0.1 10^3/uL (0.0-0.5); ABS Lymphocytes 1.5 10^3/uL (1.0-4.8); ABS Monocytes 0.8 10^3/uL (0.0-0.9); ABS Neutrophils 14.4 10^3/uL (1.5-7.6); ABS Nucleated RBC 0.01 10^3/ul; Eosinophil % 0.8 %; Lymphocyte % 8.6 %
[2022-07-30] MEDS: Pantoprazole VIAL 40 MG VIAL IV SCH (08:52)
[2022-07-30] MEDS: Enoxaparin 40 MG/0.4 ML SYR SUBCUT SCH (08:53)
[2022-07-30] MEDS: cefTRIAXone 2 gm/50 mL D5W 2 GM/50 ML BAG IV SCH (10:30)
[2022-07-30 13:12] LABS: Urine Appearance Cloudy; Urine Bilirubin Negative (Negative); Urine Blood 1+ (Negative); Urine Color Amber; Urine Glucose Negative (Negative); Urine Ketones Negative (Negative); Urine Nitrite Negative (Negative); Urine Protein Negative (Negative); Urine Specific Gravity 1.019 (1.002-1.030); Urine Urobilinogen Negative (Negative)
[2022-07-30 13:15] LABS: Urine Bacteria 1+ (Absent); Urine Granular Casts Present (Absent); Urine Red Blood Cell 1+(3-5/hpf) (Absent); Urine Renal Epithelial Cells Present (Absent); Urine Squamous Epithelial Cell Present (Absent); Urine White Blood Cell 1+(6-10/hpf) (Absent)
[2022-07-30] MEDS: Insulin GLARGINE 100 un/ml 10 ml VIAL SUBCUT SCH (21:56)
[2022-07-31] MEDS: metroNIDAZOLE IV 500 MG/100ML 500 MG/100 ML BAG IVPB SCH ×3 (01:06→17:38)
[2022-07-31 05:15] LABS: Hematocrit 30.5 % (35-45); Hemoglobin 10.3 g/dL (11.5-14.3); Mean Corpuscular Hemoglobin 30.8 pg (27-33); Mean Corpuscular Hgb Conc 33.7 g/dL (31-36); Mean Corpuscular Volume 91.4 fL (80-97); Mean Platelet Volume 8.4 fL (7.5-11.2); Platelet Count 406 10^3/uL (150-450); Red Blood Count 3.34 10^6/uL (3.63-4.92); Red Cell Distribution Width 14.4 % (12-17); White Blood Count 15.3 10^3/uL (3.8-11.8)
[2022-07-31 05:41] LABS: ABS Basophils 0.2 10^3/uL (0.0-0.1); ABS Eosinophils 0.1 10^3/uL (0.0-0.5); ABS Lymphocytes 1.2 10^3/uL (1.0-4.8); ABS Neutrophils 12.8 10^3/uL (1.5-7.6); Albumin 1.8 g/dL (3.2-5.2); Albumin/Globulin Ratio 0.6 (1-3); Calcium 7.5 mg/dL (8.6-10.3); Creatinine, Serum 0.78 mg/dL (0.51-0.95); Eosinophil % 0.7 %; Globulin 2.8 g/dL (2-4); Lymphocyte % 8.2 %; Potassium 4.3 mmol/L (3.5-5.0); RBC Morphology Normal (Normal); Total Bilirubin 0.3 mg/dL (0.2-1.0); Total Protein 4.6 g/dL (6.4-8.9); eGFR CKD-EPI 78.7 (>60)
[2022-07-31] MEDS: Pantoprazole VIAL 40 MG VIAL IV SCH (08:17)
[2022-07-31] MEDS: Enoxaparin 40 MG/0.4 ML SYR SUBCUT SCH (08:18)
[2022-07-31] MEDS: cefTRIAXone 2 gm/50 mL D5W 2 GM/50 ML BAG IV SCH (09:36)
[2022-07-31 21:22] LABS: Venous Bicarbonate HCO3 28.9 mmol/L (24-28)
[2022-07-31] MEDS: Insulin GLARGINE 100 un/ml 10 ml VIAL SUBCUT SCH (21:29)
[2022-08-01] MEDS: metroNIDAZOLE IV 500 MG/100ML 500 MG/100 ML BAG IVPB SCH ×3 (00:48→17:24)
[2022-08-01 05:03] LABS: Hematocrit 30.4 % (35-45); Hemoglobin 10.3 g/dL (11.5-14.3); Mean Corpuscular Hemoglobin 31.2 pg (27-33); Mean Corpuscular Hgb Conc 33.8 g/dL (31-36); Mean Corpuscular Volume 92.3 fL (80-97); Mean Platelet Volume 8.4 fL (7.5-11.2); Platelet Count 429 10^3/uL (150-450); Red Blood Count 3.29 10^6/uL (3.63-4.92); Red Cell Distribution Width 14.5 % (12-17); White Blood Count 14.3 10^3/uL (3.8-11.8)
[2022-08-01 05:50] LABS: Calcium 7.5 mg/dL (8.6-10.3); Creatinine, Serum 0.73 mg/dL (0.51-0.95); Magnesium 1.8 mg/dL (1.9-2.7); Potassium 4.3 mmol/L (3.5-5.0); eGFR CKD-EPI 85.2 (>60)
[2022-08-01 07:10] LABS: ABS Basophils 0.1 10^3/uL (0.0-0.1); ABS Eosinophils 0.1 10^3/uL (0.0-0.5); ABS Lymphocytes 1.3 10^3/uL (1.0-4.8); ABS Neutrophils 11.8 10^3/uL (1.5-7.6); ABS Nucleated RBC 0.01 10^3/ul; Eosinophil % 0.5 %; Lymphocyte % 9.2 %
[2022-08-01] MEDS ORDERED: Magnesium Sulfate 2 gm BAG 2 GM/50 ML BAG IVPB ONE (07:24)
[2022-08-01] MEDS: Pantoprazole VIAL 40 MG VIAL IV SCH (08:27)
[2022-08-01] MEDS: Enoxaparin 40 MG/0.4 ML SYR SUBCUT SCH (08:28)
[2022-08-01] MEDS: cefTRIAXone 2 gm/50 mL D5W 2 GM/50 ML BAG IV SCH (10:26)
[2022-08-01 12:15] LABS: C Reactive Protein 177.5 mg/L (<8.01)
[2022-08-01 14:48] LABS: Immunoglobulin G3 62.8 mg/dL; Immunoglobulin G4 21.1 mg/dL
[2022-08-01] MEDS: Insulin GLARGINE 100 un/ml 10 ml VIAL SUBCUT SCH (20:30)
[2022-08-02] MEDS ORDERED: Alteplase (CATHFLO) 2 MG VIAL IV ONE (04:55)
[2022-08-02] MEDS: Pantoprazole VIAL 40 MG VIAL IV SCH (08:26)
[2022-08-02] MEDS: Enoxaparin 40 MG/0.4 ML SYR SUBCUT SCH (08:26)
[2022-08-02 08:38] LABS: ALT 15 U/L (7-52); Alkaline Phosphatase 190 U/L (35-149); Blood Urea Nitrogen 20 mg/dL (6-24); CO2 Carbon Dioxide 28 mmol/L (22-32); Calcium 7.5 mg/dL (8.6-10.3); Chloride 107 mmol/L (101-111); Creatinine, Serum 0.61 mg/dL (0.51-0.95); Glucose 139 mg/dL (70-100); Magnesium 1.9 mg/dL (1.9-2.7); Sodium 140 mmol/L (135-145); Total Protein 4.5 g/dL (6.4-8.9); eGFR CKD-EPI 92.6 (>60)
[2022-08-02 09:05] LABS: Albumin 1.6 g/dL (3.2-5.2); Albumin/Globulin Ratio 0.6 (1-3); Anion Gap 5 mmol/L (2-16); Globulin 2.9 g/dL (2-4)
[2022-08-02] MEDS ORDERED: Furosemide 20 mg/2 ml IV VIAL IV SLOW PU ONE (09:54)
[2022-08-02 10:11] LABS: Hematocrit 30.4 % (35-45); Hemoglobin 10.2 g/dL (11.5-14.3); Mean Corpuscular Hemoglobin 30.7 pg (27-33); Mean Corpuscular Hgb Conc 33.5 g/dL (31-36); Mean Corpuscular Volume 91.5 fL (80-97); Mean Platelet Volume 7.7 fL (7.5-11.2); Platelet Count 501 10^3/uL (150-450); Red Blood Count 3.32 10^6/uL (3.63-4.92); Red Cell Distribution Width 14.2 % (12-17); White Blood Count 13.4 10^3/uL (3.8-11.8)
[2022-08-02 10:24] LABS: AGNA-1, CSF Negative (Negative); ANNA-1, CSF Negative (Negative); ANNA-2, CSF Negative (Negative); ANNA-3, CSF Negative (Negative); Amphiphysin Ab, CSF Negative (Negative); CRMP-5-IgG, CSF Negative (Negative); IFA Notes None.; PCA-1, CSF Negative (Negative); PCA-2, CSF Negative (Negative); PCA-Tr, CSF Negative (Negative)
[2022-08-02 10:56] LABS: Potassium Redraw 4.3 mmol/L (3.5-5.0)
[2022-08-02 13:31] LABS: RBC Morphology Normal (Normal)
[2022-08-02 13:32] LABS: ABS Eosinophils 0.1 10^3/uL (0.0-0.5); ABS Lymphocytes 1.1 10^3/uL (1.0-4.8); ABS Monocytes 0.8 10^3/uL (0.0-0.9); ABS Neutrophils 11.3 10^3/uL (1.5-7.6); ABS Nucleated RBC 0.02 10^3/ul; Eosinophil % 0.7 %; Lymphocyte % 8.5 %; Nucleated Red Blood Cells % 0.1 /100 WBC (0.0-0.4)
[2022-08-02] MEDS: Insulin GLARGINE 100 un/ml 10 ml VIAL SUBCUT SCH (20:16)
[2022-08-03 04:43] LABS: Hematocrit 28.8 % (35-45); Hemoglobin 9.8 g/dL (11.5-14.3); Mean Corpuscular Hemoglobin 30.4 pg (27-33); Mean Corpuscular Hgb Conc 33.9 g/dL (31-36); Mean Corpuscular Volume 89.7 fL (80-97); Mean Platelet Volume 7.6 fL (7.5-11.2); Platelet Count 463 10^3/uL (150-450); Red Blood Count 3.21 10^6/uL (3.63-4.92); Red Cell Distribution Width 14.2 % (12-17); White Blood Count 13.1 10^3/uL (3.8-11.8)
[2022-08-03 05:26] LABS: Calcium 7.5 mg/dL (8.6-10.3); Creatinine, Serum 0.57 mg/dL (0.51-0.95); Potassium 4.1 mmol/L (3.5-5.0); eGFR CKD-EPI 94.1 (>60)
[2022-08-03 05:36] LABS: ABS Basophils 0.1 10^3/uL (0.0-0.1); ABS Eosinophils 0.1 10^3/uL (0.0-0.5); ABS Lymphocytes 1.4 10^3/uL (1.0-4.8); ABS Neutrophils 10.4 10^3/uL (1.5-7.6); ABS Nucleated RBC 0.01 10^3/ul; Eosinophil % 1.1 %; Lymphocyte % 10.7 %; Nucleated Red Blood Cells % 0.1 /100 WBC (0.0-0.4)
[2022-08-03] MEDS: Pantoprazole VIAL 40 MG VIAL IV SCH (08:19)
[2022-08-03] MEDS: Enoxaparin 40 MG/0.4 ML SYR SUBCUT SCH (08:19)
[2022-08-03] MEDS ORDERED: Furosemide 40 mg/4 ml IV VIAL IV ONE (14:33)
[2022-08-03] MEDS: Insulin GLARGINE 100 un/ml 10 ml VIAL SUBCUT SCH (21:46)
[2022-08-04] MEDS: Enoxaparin 40 MG/0.4 ML SYR SUBCUT SCH (09:31)
[2022-08-04] MEDS: Pantoprazole VIAL 40 MG VIAL IV SCH (09:31)
[2022-08-04 14:10] VITALS: BP 130/82
[2022-08-04] MEDS ORDERED: Lactulose 30 ml UDC PO SCH (21:00)
== END 2022-08-04 15:20 | disposition swing bed (61) | DRG 870 ==
LOC: SUATTDRO 11:09 → ICU 11:09 → MED 07-29 15:28
PROVIDERS: ADMIT Internal Medicine Critical Care Medicine; ATTEND Student in an Organized Health Care Education/Training Program

== ENCOUNTER 2022-10-21 15:04 | Inpatient (IN) ==
[2022-10-21] MEDS ORDERED: Lactated Ringers 1000 ml BAG 1,000 ML IV ONE (15:15)
[2022-10-21 16:40] LABS: ABS Basophils 0.1 10^3/uL (0.0-0.1); ABS Lymphocytes 1.5 10^3/uL (1.0-4.8); ABS Monocytes 0.5 10^3/uL (0.0-0.9); ABS Neutrophils 7.4 10^3/uL (1.5-7.6); ABS Nucleated RBC 0.01 10^3/ul; Eosinophil % 0.3 %; Hematocrit 33.4 % (35-45); Hemoglobin 11.1 g/dL (11.5-14.3); Lymphocyte % 15.6 %; Mean Corpuscular Hemoglobin 29.5 pg (27-33); Mean Corpuscular Hgb Conc 33.4 g/dL (31-36); Mean Corpuscular Volume 88.4 fL (80-97); Mean Platelet Volume 7.5 fL (7.5-11.2); Nucleated Red Blood Cells % 0.1 /100 WBC (0.0-0.4); Platelet Count 385 10^3/uL (150-450); Red Blood Count 3.78 10^6/uL (3.63-4.92); Red Cell Distribution Width 15.9 % (12-17); White Blood Count 9.5 10^3/uL (3.8-11.8)
[2022-10-21 16:57] LABS: Albumin 3.9 g/dL (3.2-5.2); C Reactive Protein 71.74 mg/L (<8.01); Calcium 9.8 mg/dL (8.6-10.3); Creatinine, Serum 0.79 mg/dL (0.51-0.95); Globulin 3.8 g/dL (2-4); Potassium 3.3 mmol/L (3.5-5.0); Total Bilirubin 0.9 mg/dL (0.2-1.0); Total Protein 7.7 g/dL (6.4-8.9)
[2022-10-21] MEDS ORDERED: Ondansetron 4 mg VIAL 2 MG/ML 2 ml VIAL IV ONE (17:37)
[2022-10-21] MEDS ORDERED: Famotidine IV 10 MG/ML 2 ml VIAL (20 mg) IV SLOW PU ONE (17:38)
[2022-10-21] MEDS ORDERED: Prochlorperazine 5 mg/ml 2 ml VIAL (10 mg) IV ONE (17:47)
[2022-10-21] MEDS ORDERED: Iohexol 350 (CONTRAST) 500 ML MDV IV ONE (17:53)
[2022-10-21 19:46] LABS: Urine Appearance Cloudy; Urine Bilirubin Negative (Negative); Urine Blood Negative (Negative); Urine Color Yellow; Urine Glucose Negative (Negative); Urine Ketones 2+ (Negative); Urine Nitrite Negative (Negative); Urine Protein Negative (Negative); Urine Specific Gravity 1.058 (1.002-1.030); Urine Urobilinogen Negative (Negative)
[2022-10-21 20:17] LABS: Urine Bacteria 1+ (Absent); Urine Red Blood Cell 3+(>10/hpf) (Absent); Urine Squamous Epithelial Cell Present (Absent); Urine White Blood Cell 3+(>20/hpf) (Absent)
[2022-10-21] MEDS ORDERED: cefTRIAXone 1 gm/50 mL D5W 1 GM/50 ML BAG IV ONE (21:11)
[2022-10-22] MEDS ORDERED: Potassium Chlor 20 meq TAB.ER PO ONE ×2 (00:04→06:53)
[2022-10-22] MEDS ORDERED: Ondansetron 4 mg VIAL 2 MG/ML 2 ml VIAL IV PRN ×2 (00:05→04:39)
[2022-10-22 00:52] LABS: Magnesium 1.4 mg/dL (1.9-2.7)
[2022-10-22] MEDS ORDERED: Prochlorperazine 5 mg/ml 2 ml VIAL (10 mg) IV PRN (01:09)
[2022-10-22] MEDS ORDERED: Magnesium Sulfate 2 gm BAG 2 GM/50 ML BAG IVPB ONE (01:27)
[2022-10-22] MEDS ORDERED: Potassium Chlor 10 meq TAB PO ONE (02:00)
[2022-10-22] MEDS: Enoxaparin 40 MG/0.4 ML SYR SUBCUT SCH ×2 (02:06→22:42)
[2022-10-22 06:17] LABS: Hematocrit 25.9 % (35-45); Mean Corpuscular Hemoglobin 30.5 pg (27-33); Mean Corpuscular Hgb Conc 34.6 g/dL (31-36); Mean Corpuscular Volume 88.1 fL (80-97); Mean Platelet Volume 7.3 fL (7.5-11.2); Platelet Count 295 10^3/uL (150-450); Red Blood Count 2.94 10^6/uL (3.63-4.92); Red Cell Distribution Width 16.3 % (12-17); White Blood Count 7.9 10^3/uL (3.8-11.8)
[2022-10-22 06:31] LABS: Calcium 8.9 mg/dL (8.6-10.3); Creatinine, Serum 0.66 mg/dL (0.51-0.95); Potassium 3.3 mmol/L (3.5-5.0); eGFR CKD-EPI 90.3 (>60)
[2022-10-22] MEDS ORDERED: [UNRECOGNIZED DRUG - OTHER] PO SCH (09:00)
[2022-10-22] MEDS ORDERED: VITAMIN D 1000 UNIT PO SCH (09:00)
[2022-10-22] MEDS: Cholecalciferol (VIT D3) 1,000 unit TAB PO SCH (09:14)
[2022-10-22] MEDS: Calcium Carb (TUMS) 500 mg CHEW TAB PO SCH (09:14)
[2022-10-22 10:42] LABS: Ferritin 1981.1 ng/mL (11-307)
[2022-10-22] MEDS: Prochlorperazine 5 mg/ml 2 ml VIAL (10 mg) IV PRN (10:46)
[2022-10-22 11:39] LABS: Phosphorus 3.1 mg/dL (2.5-5.0)
[2022-10-22] MEDS: D5W 1/2 NS 40 Meq KCL 1000 ml 1,000 ML IV SCH ×2 (11:48→12:18)
[2022-10-22 14:44] LABS: Calcium 9.3 mg/dL (8.6-10.3); Creatinine, Serum 0.73 mg/dL (0.51-0.95); Phosphorus 2.7 mg/dL (2.5-5.0); eGFR CKD-EPI 84.6 (>60)
[2022-10-22 18:10] LABS: Magnesium 1.9 mg/dL (1.9-2.7); Phosphorus 2.2 mg/dL (2.5-5.0)
[2022-10-22] MEDS ORDERED: SODIUM PHOSPHATE IV ONE (21:00)
[2022-10-22] MEDS ORDERED: NS 0.9% IV ONE (21:00)
[2022-10-23 05:56] LABS: ABS Basophils 0.1 10^3/uL (0.0-0.1); ABS Eosinophils 0.2 10^3/uL (0.0-0.5); ABS Lymphocytes 1.9 10^3/uL (1.0-4.8); ABS Monocytes 0.5 10^3/uL (0.0-0.9); ABS Nucleated RBC 0.01 10^3/ul; Eosinophil % 3.5 %; Hematocrit 25.4 % (35-45); Hemoglobin 8.6 g/dL (11.5-14.3); Lymphocyte % 28.4 %; Mean Corpuscular Hemoglobin 29.9 pg (27-33); Mean Corpuscular Hgb Conc 33.9 g/dL (31-36); Mean Corpuscular Volume 88.3 fL (80-97); Mean Platelet Volume 7.1 fL (7.5-11.2); Nucleated Red Blood Cells % 0.2 /100 WBC (0.0-0.4); Platelet Count 283 10^3/uL (150-450); Red Blood Count 2.88 10^6/uL (3.63-4.92); Red Cell Distribution Width 16.3 % (12-17); White Blood Count 6.7 10^3/uL (3.8-11.8)
[2022-10-23 06:11] LABS: Magnesium 1.8 mg/dL (1.9-2.7)
[2022-10-23] MEDS ORDERED: Magnesium Sulfate 2 gm BAG 2 GM/50 ML BAG IVPB ONE (08:30)
[2022-10-23] MEDS: Calcium Carb (TUMS) 500 mg CHEW TAB PO SCH (09:33)
[2022-10-23] MEDS: Cholecalciferol (VIT D3) 1,000 unit TAB PO SCH (09:34)
[2022-10-23 10:15] LABS: Calcium 8.6 mg/dL (8.6-10.3); Creatinine, Serum 0.63 mg/dL (0.51-0.95); Potassium 4.3 mmol/L (3.5-5.0); eGFR CKD-EPI 91.3 (>60)
[2022-10-23] MEDS: Prochlorperazine 5 mg/ml 2 ml VIAL (10 mg) IV PRN (14:24)
[2022-10-23] MEDS ORDERED: Midazolam 10 mg/10 ml VIAL 1 mg/ml 10 ml VIAL (10 mg) ONE (15:00)
[2022-10-23] MEDS ORDERED: fentaNYL 100 mcg/2 ml 50 MCG/ML VIAL ONE (15:00)
[2022-10-23] MEDS ORDERED: BUTAMBEN TOPICAL ONE (15:05)
[2022-10-23] MEDS ORDERED: TETRACAINE TOPICAL ONE (15:05)
[2022-10-23] MEDS ORDERED: BENZOCAINE TOPICAL ONE (15:05)
[2022-10-23] MEDS: Enoxaparin 40 MG/0.4 ML SYR SUBCUT SCH (21:21)
[2022-10-24] MEDS: Cholecalciferol (VIT D3) 1,000 unit TAB PO SCH (08:48)
[2022-10-24] MEDS: Calcium Carb (TUMS) 500 mg CHEW TAB PO SCH (08:49)
[2022-10-24] MEDS: Prochlorperazine 5 mg/ml 2 ml VIAL (10 mg) IV PRN (12:29)
[2022-10-24 13:52] VITALS: BP 135/83
[2022-10-24 14:15] LABS: Hematocrit 28.4 % (35-45); Hemoglobin 9.8 g/dL (11.5-14.3)
== END 2022-10-24 16:20 | disposition home or self-care (01) | DRG 392 ==
LOC: ED 15:04 → EDHOLD 21:44 → SUATTDRO 21:44 → MED 23:35
PROVIDERS: ADMIT Internal Medicine; ATTEND Internal Medicine

== ENCOUNTER 2022-11-04 09:21 | Observation (INO) ==
[2022-11-04] MEDS ORDERED: Lactated Ringers 1000 ml BAG 1,000 ML IV ONE (09:47)
[2022-11-04 10:50] LABS: Hematocrit 28.7 % (35-45); Hemoglobin 9.8 g/dL (11.5-14.3); Mean Corpuscular Hemoglobin 29.1 pg (27-33); Mean Corpuscular Hgb Conc 34.1 g/dL (31-36); Mean Corpuscular Volume 85.4 fL (80-97); Mean Platelet Volume 7.1 fL (7.5-11.2); Platelet Count 252 10^3/uL (150-450); Red Blood Count 3.36 10^6/uL (3.63-4.92); White Blood Count 8.3 10^3/uL (3.8-11.8)
[2022-11-04 11:15] LABS: Potassium 2.8 mmol/L (3.5-5.0)
[2022-11-04 11:16] LABS: Albumin 3.7 g/dL (3.2-5.2); Albumin/Globulin Ratio 1.2 (1-3); C Reactive Protein 70.67 mg/L (<8.01); Calcium 9.8 mg/dL (8.6-10.3); Creatinine, Serum 0.78 mg/dL (0.51-0.95); Magnesium 1.6 mg/dL (1.9-2.7); Total Bilirubin 0.8 mg/dL (0.2-1.0); Total Protein 6.7 g/dL (6.4-8.9); eGFR CKD-EPI 78.2 (>60)
[2022-11-04 11:20] LABS: ABS Basophils 0.1 10^3/uL (0.0-0.1); ABS Eosinophils 0.1 10^3/uL (0.0-0.5); ABS Monocytes 0.5 10^3/uL (0.0-0.9); ABS Neutrophils 6.7 10^3/uL (1.5-7.6); ABS Nucleated RBC 0.01 10^3/ul; Eosinophil % 0.8 %; Lymphocyte % 12.3 %; Nucleated Red Blood Cells % 0.1 /100 WBC (0.0-0.4)
[2022-11-04] MEDS ORDERED: KCL 10 MEQ/50 ML IVPREMIX 10 MEQ/50 ML BAG IV ONE ×2 (11:28→14:30)
[2022-11-04] MEDS ORDERED: Magnesium Sulfate 2 gm BAG 2 GM/50 ML BAG IVPB ONE (11:28)
[2022-11-04] MEDS ORDERED: Potassium EFFERVES 25 meq TAB PO ONE (11:28)
[2022-11-04] MEDS ORDERED: Ondansetron 4 mg VIAL 2 MG/ML 2 ml VIAL IV ONE (13:45)
[2022-11-04 17:38] LABS: Calcium 8.2 mg/dL (8.6-10.3); Creatinine, Serum 0.58 mg/dL (0.51-0.95); Potassium 4.2 mmol/L (3.5-5.0); eGFR CKD-EPI 93.1 (>60)
[2022-11-04] MEDS ORDERED: Scopolamine 1 mg/72hr PATCH TRANSDERM SCH (18:30)
[2022-11-04] MEDS ORDERED: Ondansetron 4 mg VIAL 2 MG/ML 2 ml VIAL IV PRN (19:05)
[2022-11-04] MEDS ORDERED: Enoxaparin 40 MG/0.4 ML SYR SUBCUT SCH (20:00)
[2022-11-04 20:33] LABS: Urine Appearance Cloudy; Urine Bilirubin Negative (Negative); Urine Blood 2+ (Negative); Urine Color Yellow; Urine Glucose Negative (Negative); Urine Ketones Trace (Negative); Urine Nitrite Negative (Negative); Urine Protein Negative (Negative); Urine Specific Gravity 1.006 (1.002-1.030); Urine Urobilinogen Negative (Negative)
[2022-11-04 20:58] LABS: Urine Bacteria Absent (Absent); Urine Red Blood Cell 1+(3-5/hpf) (Absent); Urine Squamous Epithelial Cell Present (Absent); Urine Transitional Epithelial Present (Absent); Urine White Blood Cell 3+(>20/hpf) (Absent)
[2022-11-05 07:44] LABS: Calcium 8.7 mg/dL (8.6-10.3); Creatinine, Serum 0.68 mg/dL (0.51-0.95); Potassium 3.9 mmol/L (3.5-5.0); eGFR CKD-EPI 89.6 (>60)
[2022-11-05] MEDS ORDERED: Potassium Chlor 20 meq TAB.ER PO ONE (12:48)
[2022-11-05 14:28] VITALS: BP 113/74
== END 2022-11-05 16:10 | disposition home or self-care (01) ==
LOC: ED 09:21 → EDHOLD 09:21 → SUATTDRO 18:01 → MED 20:49
PROVIDERS: ADMIT Student in an Organized Health Care Education/Training Program; ATTEND Family Medicine

== ENCOUNTER 2022-11-18 09:33 | Observation (INO) ==
[2022-11-18] MEDS ORDERED: NS 0.9% 1000 ml BAG 1,000 ML IV ONE ×2 (10:22→12:04)
[2022-11-18 11:35] LABS: ABS Basophils 0.1 10^3/uL (0.0-0.1); ABS Lymphocytes 1.2 10^3/uL (1.0-4.8); ABS Monocytes 0.4 10^3/uL (0.0-0.9); ABS Neutrophils 7.3 10^3/uL (1.5-7.6); ABS Nucleated RBC 0.01 10^3/ul; Eosinophil % 0.3 %; Hematocrit 25.5 % (35-45); Hemoglobin 8.7 g/dL (11.5-14.3); Lymphocyte % 13.3 %; Mean Corpuscular Hemoglobin 28.8 pg (27-33); Mean Corpuscular Hgb Conc 34.1 g/dL (31-36); Mean Corpuscular Volume 84.4 fL (80-97); Mean Platelet Volume 6.8 fL (7.5-11.2); Nucleated Red Blood Cells % 0.1 /100 WBC (0.0-0.4); Platelet Count 280 10^3/uL (150-450); Red Blood Count 3.02 10^6/uL (3.63-4.92); Red Cell Distribution Width 17.2 % (12-17)
[2022-11-18 11:51] LABS: INR 1.12 (0.83-1.13)
[2022-11-18 11:52] LABS: Albumin 3.8 g/dL (3.2-5.2); Albumin/Globulin Ratio 1.3 (1-3); Calcium 9.3 mg/dL (8.6-10.3); Creatinine, Serum 0.74 mg/dL (0.51-0.95); Globulin 2.9 g/dL (2-4); Magnesium 2.2 mg/dL (1.9-2.7); Potassium 3.8 mmol/L (3.5-5.0); Total Bilirubin 0.8 mg/dL (0.2-1.0); Total Protein 6.7 g/dL (6.4-8.9); eGFR CKD-EPI 83.3 (>60)
[2022-11-18 12:54] LABS: Urine Appearance Turbid; Urine Bilirubin Negative (Negative); Urine Blood 1+ (Negative); Urine Color Amber; Urine Glucose Negative (Negative); Urine Ketones Trace (Negative); Urine Nitrite Negative (Negative); Urine Protein 1+(30 mg/dL) (Negative); Urine Specific Gravity 1.012 (1.002-1.030); Urine Urobilinogen Negative (Negative)
[2022-11-18 13:10] LABS: Urine Bacteria 2+ (Absent); Urine Red Blood Cell 1+(3-5/hpf) (Absent); Urine Squamous Epithelial Cell Present (Absent); Urine White Blood Cell 3+(>20/hpf) (Absent)
[2022-11-18 13:14] LABS: C Reactive Protein 49.35 mg/L (<8.01)
[2022-11-18 13:50] LABS: TSH Ultra Thyroid Stim Horm 0.54 mcIU/mL (0.34-5.60)
[2022-11-18] MEDS ORDERED: Meropenem 1 GM PREMIX(*) 1 GM/50 ML BAG IV SCH (14:00)
[2022-11-18] MEDS ORDERED: Enoxaparin 40 MG/0.4 ML SYR SUBCUT SCH (16:00)
[2022-11-18] MEDS ORDERED: Ondansetron 4 mg VIAL 2 MG/ML 2 ml VIAL IV PRN (16:22)
[2022-11-18] MEDS ORDERED: Linezolid 600 MG IVPREMIX(*) 600 MG/300 ML BAG IVPB SCH (20:00)
[2022-11-19 08:45] LABS: Hematocrit 22.2 % (35-45); Hemoglobin 7.6 g/dL (11.5-14.3); Mean Corpuscular Hemoglobin 28.6 pg (27-33); Mean Corpuscular Hgb Conc 34.1 g/dL (31-36); Mean Corpuscular Volume 83.7 fL (80-97); Mean Platelet Volume 6.9 fL (7.5-11.2); Platelet Count 216 10^3/uL (150-450); Red Blood Count 2.65 10^6/uL (3.63-4.92); Red Cell Distribution Width 16.9 % (12-17); White Blood Count 5.6 10^3/uL (3.8-11.8)
[2022-11-19 08:59] LABS: Calcium 8.3 mg/dL (8.6-10.3); Creatinine, Serum 0.56 mg/dL (0.51-0.95); Magnesium 1.9 mg/dL (1.9-2.7); Potassium 3.7 mmol/L (3.5-5.0); eGFR CKD-EPI 93.9 (>60)
[2022-11-19] MEDS ORDERED: Linezolid 600 MG IVPREMIX(*) 600 MG/300 ML BAG IVPB SCH (09:00)
[2022-11-19 11:23] VITALS: BP 137/78
[2022-11-19] MEDS: Potassium EFFERVES 25 meq TAB PO ONE ×2 (11:52→12:43)
[2022-11-19 12:43] LABS: Hematocrit 26.2 % (35-45); Hemoglobin 9.2 g/dL (11.5-14.3); Mean Corpuscular Hemoglobin 29.3 pg (27-33); Mean Corpuscular Hgb Conc 34.9 g/dL (31-36); Mean Platelet Volume 7.1 fL (7.5-11.2); Platelet Count 292 10^3/uL (150-450); Red Blood Count 3.12 10^6/uL (3.63-4.92); Red Cell Distribution Width 17.3 % (12-17); White Blood Count 7.5 10^3/uL (3.8-11.8)
[2022-11-19 13:14] LABS: Tear Drop Cells 1+
[2022-11-19 13:15] LABS: ABS Eosinophils 0.1 10^3/uL (0.0-0.5); ABS Lymphocytes 1.5 10^3/uL (1.0-4.8); ABS Monocytes 0.3 10^3/uL (0.0-0.9); ABS Neutrophils 5.5 10^3/uL (1.5-7.6); ABS Nucleated RBC 0.02 10^3/ul; Anisocytosis 1+; Eosinophil % 1.2 %; Lymphocyte % 20.4 %; Nucleated Red Blood Cells % 0.2 /100 WBC (0.0-0.4)
[2022-11-21 14:00] LABS: Anaplasma phagocytophilum Negative (Negative); B. miyamotoi PCR, B Negative (Negative); Babesia divergens/MO-1 Negative (Negative); Babesia ducani Negative (Negative); Ehrlichia chaffeensis Negative (Negative); Ehrlichia ewingii/canis Negative (Negative); Ehrlichia muris eauclairensis Negative (Negative)
== END 2022-11-19 14:15 | disposition home or self-care (01) ==
LOC: ED 09:33 → EDHOLD 09:33 → SUATTDRO 13:45 → SSU 21:10
PROVIDERS: ADMIT Internal Medicine; ATTEND Internal Medicine